=== PATIENT | male | born 1950 | race Caucasian/White ===

== ENCOUNTER → 2019-05-10 | Outpatient (CLI) | payer MEDICARE ==
[2014-08-11 20:10] VITALS: BP 148/91
[~2019-05-10] MED LIST: ASPI-630 PO; ATORVASTATIN CA80 MG PO; CARV12.5 PO; GLIP10TA13 PO; INSU100I13 SQ; VANC1.5P17 IV; WARF-31 PO
--- NOTE | 2019-05-10 13:57 | RAD ---
Three-phase bone scan with IV injection Clinical indications: Cellulitis of the left lower limb. Toe infection. Technique: After IV infusion of 26 mCi of technetium 99m MDP, three-phase bone scan of both feet were performed. COMPARISON: None available. FINDINGS: Hyperemia of the left foot is seen. Increased blood pool activity and seen involving the second digit and to a greater extent, the first digit of the left foot. Delayed imaging demonstrates increased activity involving the first and second digits of the left foot. Therefore, findings may reflect osteomyelitis. In addition, there is abnormal activity on the delayed images involving either the second and third or third and fourth metatarsal bones of the right foot. This could represent posttraumatic fracture/stress fracture. Clinical correlation is recommended. IMPRESSION: Scintigraphic findings are consistent with osteomyelitis of the first and second digits of the left foot. Posttraumatic fractures/stress fractures of the right midfoot. Recommend radiographic and clinical correlation of both areas. Electronically signed by: Kurt Montez MD (05/10/2019 1:55 PM) [id number]
== END ==
LOC: NM 09:33
PROVIDERS: ATTEND Nurse Practitioner Adult Health
DX: L03.116 Cellulitis of left lower limb (principal)
CPT/HCPCS: 78315; A9503

== ENCOUNTER 2019-10-07 15:58 | Inpatient (IN) | payer MEDICARE ==
[~2019-10-07] VITALS: Ht 185.4 cm; Wt 119.0 kg
[2019-10-07 16:21] VITALS: BP 115/73
[2019-10-07] MEDS ORDERED: IV NORMAL SALINE 1,000ML 1,000 ML IV SCH (16:30)
[2019-10-07 17:04] LABS: BASO % 0 % (0-3); EOS # 0.1 x10^3/uL (0.0-0.7); EOS % 0 % (0-3); LYMPH % 7 % (24-48); MEAN CORPUSCULAR HEMOGLOBIN 30 pg (25-35); MEAN CORPUSCULAR HGB CONC 33 g/dL (31-37); MEAN CORPUSCULAR VOLUME 90 fL (79-100); MONO # 1.7 x10^3/uL (0.0-1.1); MONO % 12 % (0-9); NEUT # 11.4 x10^3uL (1.8-7.7); NEUT % 80 % (31-73); PLATELET COUNT 306 x10^3/uL (140-400); RED BLOOD COUNT 2.68 x10^6/uL (4.30-5.70); RED CELL DISTRIBUTION WIDTH 14.3 % (11.5-14.5); WHITE BLOOD COUNT 14.2 x10^3/uL (4.0-11.0)
[2019-10-07 17:14] LABS: ALBUMIN/GLOBULIN RATIO 0.5 (1.0-1.7); CALCIUM 7.8 mg/dL (8.5-10.1); CREATININE 1.9 mg/dL (0.7-1.3); GFR 35.2; TOTAL BILIRUBIN 0.9 mg/dL (0.2-1.0); TOTAL PROTEIN 5.9 g/dL (6.4-8.2)
--- NOTE | 2019-10-07 17:25 | RAD ---
EXAM: Head CT without contrast. HISTORY: Frequent falls. Weakness. TECHNIQUE: Computed tomographic images of the head were obtained without contrast. *One or more of the following individualized dose reduction techniques were utilized for this examination: 1. Automated exposure control. 2. Adjustment of the mA and/or kV according to patient size. 3. Use of iterative reconstruction technique. COMPARISON: None. FINDINGS: There is no acute or subacute extra-axial or intraparenchymal hemorrhage. There is no mass effect or midline shift. There is no hydrocephalus. There are areas of decreased attenuation within the cerebral white matter, nonspecific and likely related to chronic small vessel disease. There is cerebral volume loss. The visualized portions of the orbits, paranasal sinuses and mastoid air cells are unremarkable. No suspicious calvarial lesion is seen. IMPRESSION: 1. No acute intracranial finding. 2. Bilateral cerebral white matter changes, likely due to chronic small vessel disease. Electronically signed by: Michelle Britton MD (10/07/2019 5:22 PM) [facility]
[2019-10-07] MEDS ORDERED: WARF4TAB9 PO (17:30)
[2019-10-07] MEDS ORDERED: INSU100I30 SQ (17:30)
[2019-10-07] MEDS ORDERED: MUPI15CR8 TP (17:30)
[2019-10-07] MEDS ORDERED: LISI-338 PO (17:30)
[2019-10-07] MEDS ORDERED: WARF5TAB9 PO (17:30)
--- NOTE | 2019-10-07 17:35 | NUR ---
NSG NOTE; ADMISSION DIRECT ADMIT TO ROOM 107 VIA W/C AT 1610 DROPPED OFF BY PT HAD GONE TO DR TANG'S OFFICE TODAY AFTER HAVING A FSBS 29 THIS AM. PT ALSO STATES HE FELL TODAY AFTER LOOSING HIS BALANCE.
[2019-10-07] MEDS ORDERED: CARVEDILOL 12.5 MG TABLET PO SCH (18:00)
[2019-10-07] MEDS ORDERED: glipiZIDE 5 MG TABLET PO SCH (18:00)
[2019-10-07] MEDS ORDERED: VANCOMYCIN PER PHARMACY MC PRN (18:15)
[2019-10-07] MEDS ORDERED: ZOLPIDEM 5 MG TABLET. PO PRN (18:15)
[2019-10-07] MEDS ORDERED: ACETAMINOPHEN/CODEINE 300/30MG TABLET PO PRN (18:15)
[2019-10-07] MEDS ORDERED: PANTOPRAZOLE 40 MG TABLET. PO SCH (18:15)
--- NOTE | 2019-10-07 18:15 | NUR ---
NSG NOTE; DR TANG UPDATE LAB AND CT RESULTS CALLED TO DR TANG. NEW ORDERS NOTED
[2019-10-07] MEDS: ACETAMINOPHEN 500 MG TABLET PO PRN (18:37)
--- NOTE | 2019-10-07 19:26 | NUR ---
Pharmacy Vancomycin Dosing Note S:Consulted to monitor and dose vancomycin started 10/07/19. O:CHAUNCEY DREW is a 69 year old M with Cellulitis, . Height: 6 feet, 1 inches Weight: 119.0 kg [place] Body Weight: Adjusted Body Weight: Dosing Weight: Actual Other Antibiotics: NONE LABS: Last BUN: 58 Last Creatinine: 1.9 Creatinine Clearance: 48.89 Last WBC: 14.2 Last Procalcitonin: Tmax (past 24 hours): Vancomycin Dosing: Loading Dose: 2000 mg x1 Dosing Weight: Actual Target Trough: 10-20 A: Based on: Actual weight, renal function, and diagnosis P: 1. Begin Vancomycin 1750 mg IV q24h 2. Follow up Trough level on 10/09/19 at 1930 3. Pharmacy will continue to monitor, follow and adjust therapy as needed. MÓNICA SEYMOUR, 10/07/19 192
[2019-10-07 19:30] VITALS: BP 122/64
--- NOTE | 2019-10-07 19:40 | RAD ---
CHEST PA LATERAL History: Reason: elevated wbc, weakness, anemic, confusion / Spl. Instructions: / History: Comparison: August 01, 2014 Findings: No consolidation or pleural effusion. Normal heart size. No pneumothorax. 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 Impression: 1. No acute cardiopulmonary process. Electronically signed by: Govind Queen DO (10/07/2019 7:37 PM) [facility]
[2019-10-07] MEDS ORDERED: VANCOMYCIN 2 GM in IV NORMAL SALINE 500ML 500 ML IV ONE (20:00)
[2019-10-07] MEDS ORDERED: PHYTONADIONE 10 MG/ML AMPUL. SQ ONE (21:00)
[2019-10-07] MEDS ORDERED: [UNRECOGNIZED DRUG - OTHER] IV SCH (21:00)
[2019-10-07] MEDS ORDERED: VANCOMYCIN IV SCH (21:00)
[2019-10-07] MEDS ORDERED: INSULIN GLARGINE HUM REC ANLOG 28 UNIT SQ SCH (21:00)
[2019-10-07] MEDS ORDERED: PIP/TAZO PER PHARMACY MC PRN (21:00)
[2019-10-07] MEDS ORDERED: SOD CHLORIDE IV SCH (21:00)
[2019-10-07] MEDS ORDERED: ATORVASTATIN CALCIUM 20 MG TABLET PO SCH (21:00)
[2019-10-07] MEDS: MUPIROCIN 2% TOPICAL OINTMENT 22GM TUBE. TP SCH (21:31)
[2019-10-07 23:40] VITALS: BP 116/69
[2019-10-08] VITALS (25 sets, daily range): BP systolic 84–149; BP diastolic 29–70
[2019-10-08] MEDS: PIPERACILLIN/TAZOBACTAM 3.375 GM in IV NORMAL SALINE 50ML 50 ML IV SCH ×3 (00:25→14:43)
[2019-10-08] MEDS: ACETAMINOPHEN 500 MG TABLET PO PRN ×3 (00:25→14:58)
--- NOTE | 2019-10-08 04:51 | NUR ---
Pt bladder scanned due to pt having not voided during shift. bladder was retaining over [address] notified and orders received for a banuelos catheter. once catheter was in place there was an immediate return of tea colored urine amounting 600 ml. pt tolerated procedure well. will continue to monitor.
[2019-10-08 05:01] LABS: CLARITY,URINE CLOUDY; COLOR,URINE BROWN
[2019-10-08 05:02] LABS: BACTERIA,URINE FEW /HPF (0-FEW); RBC,URINE TNTC /HPF (0-2)
[2019-10-08 07:14] LABS: BASO % 0 % (0-3); EOS # 0.2 x10^3/uL (0.0-0.7); EOS % 1 % (0-3); LYMPH # 1.6 x10^3/uL (1.0-4.8); LYMPH % 12 % (24-48); MEAN CORPUSCULAR HEMOGLOBIN 30 pg (25-35); MEAN CORPUSCULAR HGB CONC 34 g/dL (31-37); MEAN CORPUSCULAR VOLUME 90 fL (79-100); MONO # 1.9 x10^3/uL (0.0-1.1); MONO % 14 % (0-9); NEUT # 9.2 x10^3uL (1.8-7.7); NEUT % 72 % (31-73); PLATELET COUNT 266 x10^3/uL (140-400); RED BLOOD COUNT 2.07 x10^6/uL (4.30-5.70); RED CELL DISTRIBUTION WIDTH 14.6 % (11.5-14.5); WHITE BLOOD COUNT 12.9 x10^3/uL (4.0-11.0)
[2019-10-08 07:36] LABS: CALCIUM 7.3 mg/dL (8.5-10.1); CREATININE 2.1 mg/dL (0.7-1.3); GFR 31.4; POTASSIUM 4.3 mmol/L (3.5-5.1)
[2019-10-08 07:37] LABS: HEMATOCRIT 18.5 % (39.0-53.0); HEMOGLOBIN 6.3 g/dL (13.0-17.5)
[2019-10-08] MEDS ORDERED: diphenhydrAMINE HCL 25 MG CAPSULE PO ONE (07:45)
[2019-10-08] MEDS ORDERED: GLUCAGON,HUMAN RECOMBINANT 1 MG KIT. ONE (07:53)
[2019-10-08] MEDS ORDERED: DEXTROSE 50% 25 GM / 50ML DISP.SYRIN. IV ONE ×3 (07:53→16:00)
[2019-10-08] MEDS ORDERED: ACETAMINOPHEN 325 MG TABLET PO ONE (08:00)
[2019-10-08] MEDS ORDERED: PHYTONADIONE 10 MG/ML AMPUL. SQ ONE (08:15)
[2019-10-08] MEDS ORDERED: PHYTONADIONE for IVPB 5 MG in IV NORMAL SALINE 50ML 50 ML IV ONE ×2 (08:45→13:30)
[2019-10-08] MEDS ORDERED: IV DEXTROSE 5% - 0.9 % NACL 1,000 ML IV SCH (08:45)
[2019-10-08] MEDS: PANTOPRAZOLE IV 80 MG in IV NORMAL SALINE 100ML 100 ML IV SCH ×2 (08:45→16:36)
[2019-10-08] MEDS: MUPIROCIN 2% TOPICAL OINTMENT 22GM TUBE. TP SCH ×2 (09:00→14:00)
[2019-10-08] MEDS ORDERED: INSULIN GLARGINE SYRINGE. SQ SCH (09:00)
[2019-10-08] MEDS ORDERED: LACTOBACILLUS RHAMNOSUS GG 1 CAPSULE. PO SCH (09:00)
[2019-10-08] MEDS ORDERED: LISINOPRIL 5 MG TABLET. PO SCH (09:00)
[2019-10-08] MEDS ORDERED: PHENYLEPHRINE INJ 50 MG in IV NORMAL SALINE 250ML 250 ML IV PRN (10:30)
[2019-10-08] MEDS ORDERED: NOREPINEPHRINE BITARTRATE 8 MG in IV DEXTROSE 5% 250 ML IV PRN (11:00)
--- NOTE | 2019-10-08 11:19 | NUR ---
Pt came over from [address] [place] [address] emergently. Pt was hypotensive map in the 50's, hypoglycemic. PT INR has been greater than 10 with numerous doses of vitamin K given. PRBC ordered for low hgb. Pt does have subcuteanous hemorrhages, blood coming from meatus, toe wound bleeding and seeping from lines. PT has 3 IV now with protonix, prbc, and ROSA-synephrine running. Pt seems to be stable at this time with orders to transfer to . at bedside MAP is 72. Angelika RN
[2019-10-08] MEDS ORDERED: SUCRALFATE 1 GM/10 ML ORAL.SUSP. PEG SCH (11:30)
--- NOTE | 2019-10-08 11:30 | NUR ---
Blood tubing primed with NS than primed with blood. Blood transfusion started at 60 cc for 15 minutes than monitored closely with no s/s of reaction noted. Blood increased to 125cc/hr. Will continue to monitor. Angelika TODD
[2019-10-08 12:44] LABS: BGAS PH 7.44 (7.35-7.46)
--- NOTE | 2019-10-08 14:23 | NUR ---
NSG NOTE; TRANSFER TO ICU 1 AT 1030 CRITICAL LAB RESULTS CALLED TO DR TANG AT 0755 WITH ORDERS RECEIVED PT HAD TO AROUSE BUT DOES NOT RESPOND VERBALLY LAB GLUCOSE OF 39 TREATED WITH AMP D50 WITH FSBS 122 AT 0813. PT CONT TO BE VERBALLY NONRESPONSIVE BUT WOULD OPEN HIS EYES ON COMMAND. FOLLOW UP FSBS: @0852: 87 @1007: 64 IV FLUIDS CHANGED TO D5NS CRITICAL INR TREATED WITH VIT K SQ THEN IV. @ 0930, DR TANG REQUESTS ICU BED. SECOND IV SITE STARTED WITH IV PROTONIX GTT. BP LOW AFTER 1000. ICU BED OPENS AND PT TRANFERRED TO ICU 1 AT 1030. REPORT GIVEN TO CAREN TODD AT BEDSIDE. I CALLED LYNNE TO UPDATE HER ON PT'S CONDITION. NS EVALUATION SPECIALIST GIVES PERMISSION FOR TO VISIT PT AT BEDSIDE
--- NOTE | 2019-10-08 14:24 | PN ---
DATE: SUBJECTIVE: A 69-year-old gentleman admitted yesterday, apparently been sick for some time and finally came in with his . Patient was very reluctant to come in; however, he has been noted to have an INR. He has been taking his medications right. INR greater than 10. PT greater than 120. He has been given vitamin K subcutaneous, did not do much, so we are going to give it to him IV. The patient's blood sugar dropped down to 39 this morning (NC). He was given some glucagon and also some sugar orally. His blood sugar has been up to ____, closely monitoring that. All his diabetic meds have been held. He was just on a sliding scale. His hemoglobin dropped from 8 down to 6.3, hematocrit from 24 to 18, platelets are good. Protime still elevated as noted. He is going to get IV vitamin K and then repeat the protime here in hour or so. His urine showed too numerous to count red blood cells. PHYSICAL EXAMINATION: VITAL SIGNS: Otherwise, the patient's blood pressure 110/70, respiratory rate 18, pulse anywhere from 99 to 80. He did have a low-grade temperature of 99.5. He is being seen as an outpatient for his right lower leg, which has an infection in it and so he did have a positive lactic acid and was placed on IV Zosyn and vancomycin for a leg infection. Presently, he is alert, very lethargic, hemoglobin as noted went down into the low 6, after being rehydrated and will continue to be monitored as such. The patient has a Cat catheter and he was unable to void. He had over 650 mL of urine with the initial placement of the Cat catheter. The patient otherwise blood sugars have been all over. Albumin low at 2. GENERAL: The patient otherwise is arousable, but very lethargic, pale throughout. LUNGS: Diminished, but clear. CARDIOVASCULAR: Regular sinus rhythm. ABDOMEN: Soft, protuberant, nontender. No rebounding. No guarding. The patient otherwise had a head CT, of course there was nothing significant there nor was his chest x-ray. We will get a CT abdomen and pelvis for this bleeding situation, probably from his kidneys. He has been put on Carafate, Protonix as well to cover any situation there. He had been on aspirin at home. In any case, very complex patient. We will try to transfer him to the ICU waiting for further approval to get him transferred. We will put a PICC line in him and continue. He is on antibiotics as indicated. He is on some fluids of D5 half normal saline to maintain blood pressure as well as blood sugars, sliding scale, blood transfusion 2 units packed RBCs pending. We will continue to monitor that situation as well as his INR after infusion of the IV of vitamin K. IMPRESSION: Gross hematuria, possible gastrointestinal bleed, anemia secondary to bleed, hypocoagulable state, INR greater than 10, obesity, severe protein malnutrition, type 2 diabetes, hypoglycemia, leukocytosis, possible sepsis, leg wounds, primarily to the right lower leg with ulceration. [facility] has been consulted on that. Otherwise, the patient is not eating. We will try to get a PICC and may need TPN or other nutritional supplementation as he does not seem to be eating at the moment and we will make adjustments, but our big first move is to the ICU, PICC line placement, continue IV antibiotic therapies and reverse this protime. STEVO TANG MD DR: FAINA/latosha JOB#: [id number] / [id number]
--- NOTE | 2019-10-08 15:00 | NUR ---
Blood tubing flushed with NS than primed with blood. Blood transfusion started at 60 cc for 15 minutes than monitored closely with no s/s of reaction noted. Blood increased to 125cc/hr. Will continue to monitor. Angelika TODD
--- NOTE | 2019-10-08 16:07 | EKG ---
[address] [address] Test Date: 2019-10-08 Test Time: 16:04:43 Pat Name: CHAUNCEY DREW Department: Room: 107 A Gender: M [employer]: : 1950 Requested By: STEVO TANG Order Number: [id number] Reading MD: Measurements Intervals [place] Rate: 77 P: -59 GA: 212 QRS: -56 QRSD: 114 T: 111 QT: 376 QTc: 427 Interpretive Statements SINUS RHYTHM ABNORMAL LEFT AXIS DEVIATION QRS(T) CONTOUR ABNORMALITY CONSISTENT WITH INFERIOR INFARCT PROBABLY OLD T ABNORMALITY IN HIGH LATERAL LEADS ABNORMAL ECG RI6.01 No previous ECG available for comparison
--- NOTE | 2019-10-08 16:52 | NUR ---
Pt transferred to room BH 2186. PT did receive 2 unit PRBC and FFP prior to departure. ROSA was titrated down to 0.5 mcg/kg/min and pt was maintaining BP well after hypovolemia replenished. Pt was more alert after pt received dextrose 50% on arrival to ICU. Pt Blood sugar did drop again to 44 prior to departure to . We gave another dextrose 50 % and resumed dextrose 5% when pt let to . Report given to Chrissie at and she verbalized understanding of transfer and poc, report given to Kelly MIRANDA at , and to Patrizia with EMS. PT was at bedside and verbalize understanding of transfer and poc. Angelika TODD
[2019-10-08] MEDS ORDERED: CARVEDILOL 6.25 MG TABLET PO SCH (17:00)
--- NOTE | 2019-10-08 18:04 | NUR ---
Pt transferred to . Pt had extensive wounds that I were unaware due to emergency of transfer. Ku notified of wounds. Angelika TODD
[2019-10-08] MEDS ORDERED: VANCOMYCIN 1.75 GM in IV NORMAL SALINE 500ML 500 ML IV SCH (20:00)
[2019-10-09 02:06] LABS: HEMOGLOBIN A1C 6.9 % (4.8-5.6)
== END 2019-10-08 17:00 | disposition short-term general hospital (02) | DRG 871 ==
LOC: 1 SOUTH 15:58 → ICU 10-08 10:44
PROVIDERS: ADMIT Family Medicine; ATTEND Family Medicine
PROC: 30233K1 Transfusion of Nonautologous Frozen Plasma into Peripheral Vein, Percutaneous Approach (ICD-10-PCS; principal; 2019-10-08)
PROC: 30233N1 Transfusion of Nonautologous Red Blood Cells into Peripheral Vein, Percutaneous Approach (ICD-10-PCS; 2019-10-08)
DX: A41.9 Sepsis, unspecified organism (principal); E43 Unspecified severe protein-calorie malnutrition; I26.99 Other pulmonary embolism without acute cor pulmonale; K92.2 Gastrointestinal hemorrhage, unspecified; L97.919 Non-pressure chronic ulcer of unspecified part of right lower leg with unspecified severity; R31.0 Gross hematuria; D50.0 Iron deficiency anemia secondary to blood loss (chronic); Z68.34 Body mass index [BMI] 34.0-34.9, adult; Z79.4 Long term (current) use of insulin; E11.65 Type 2 diabetes mellitus with hyperglycemia; I87.2 Venous insufficiency (chronic) (peripheral); E78.5 Hyperlipidemia, unspecified; E11.621 Type 2 diabetes mellitus with foot ulcer; E11.649 Type 2 diabetes mellitus with hypoglycemia without coma; E11.622 Type 2 diabetes mellitus with other skin ulcer; Z86.718 Personal history of other venous thrombosis and embolism; I25.2 Old myocardial infarction; I10 Essential (primary) hypertension; Z87.891 Personal history of nicotine dependence; L08.9 Local infection of the skin and subcutaneous tissue, unspecified
CPT/HCPCS: 36415; 70450; 71046; 80048; 80053; 81001; 82607; 82803; 82947; 83036; 83540; 83550; 83605; 85025; 85610; 86850; 86900; 86901; 86920; 86927; 87086; 93005; C9113; J2543; J3370; J3430; J7040; J7042; J7050; P9016; P9017; J7030